=== PATIENT | female | born 1980 | race Caucasian/White ===

== ENCOUNTER → 2021-05-15 12:56 | Outpatient (BNVA) | payer OTHER, SELFPAY | PROVIDERS: PCP Nurse Practitioner; Visit Provider Psychiatry & Neurology Neurology | DX: G47.10 Hypersomnia, unspecified (principal); G47.419 Narcolepsy without cataplexy; R51.9 Headache, unspecified; G89.29 Other chronic pain | CPT/HCPCS: 99212 ==

== ENCOUNTER → 2021-06-21 11:51 | Outpatient (BNVA) | payer MEDICAID, SELFPAY | PROVIDERS: PCP Nurse Practitioner; Visit Provider Psychiatry & Neurology Neurology | DX: Z79.899 Other long term (current) drug therapy (principal) ==

== ENCOUNTER → 2021-07-08 14:24 | Outpatient (BNVA) | payer OTHER, SELFPAY | PROVIDERS: PCP Nurse Practitioner; Visit Provider Psychiatry & Neurology Neurology | DX: G47.10 Hypersomnia, unspecified (principal); F41.9 Anxiety disorder, unspecified; F32.A Depression, unspecified; R51.9 Headache, unspecified; G89.29 Other chronic pain | CPT/HCPCS: 99212 ==

== ENCOUNTER 2024-12-07 09:15 | Outpatient (REF) | payer OTHER, SELFPAY ==
--- NOTE | 2024-12-07 09:21 | EMG_ITS ---
Chief complaint: Bilateral hand numbness, right worse than left Reason for referral: Evaluate for Carpal Tunnel Syndrome, ulnar neuropathy, cervical radiculopathy Referred by: Konrad SANTOS Procedure done: Bilateral upper extremities NCS/EMG Precautions and/or limitations: None The limb temperature was monitored continuously and remained between 32-36 degrees C during the performance of the NCS. Nerve Conduction Studies Anti Sensory Summary Table ?Stim Site NR Onset (ms) Norm Onset (ms) Peak (ms) Norm Peak (ms) O-P Amp (?V) Norm O-P Amp Site1 Site2 Delta-0 (ms) Dist (cm) Valentin (m/s) Norm Valentin (m/s) Left Median Anti Sensory (2nd Digit) Wrist ? 3.0 4.8 <3.6 10.3 >10 Wrist 2nd Digit 3.0 14.0 47 Right Median Anti Sensory (2nd Digit) Wrist ? 4.6 6.0 <3.6 5.5 >10 Wrist 2nd Digit 4.6 14.0 30 Right Radial Anti Sensory (Thumb) Forearm ? 1.5 2.1 <3.1 26.1 Forearm Thumb 1.5 0.0 Left Ulnar Anti Sensory (5th Digit) Wrist ? 2.7 3.7 <3.7 20.1 >15.0 Wrist 5th Digit 2.7 14.0 52 Right Ulnar Anti Sensory (5th Digit) Wrist ? 2.7 3.5 <3.7 19.3 >15.0 Wrist 5th Digit 2.7 14.0 52 Motor Summary Table ?Stim Site NR Onset (ms) Norm Onset (ms) O-P Amp (mV) Norm O-P Amp iAmp (mV) Amp (1st) (%) Site1 Site2 Delta-0 (ms) Dist (cm) Valentin (m/s) Norm Valentin (m/s) Left Median Motor (Abd Poll Brev) Wrist ? 5.1 <3.9 11.0 >4.5 13.6 100.0 Elbow Wrist 3.5 17.5 50 >45 Elbow ? 8.6 11.1 13.4 100.9 Right Median Motor (Abd Poll Brev) Wrist ? 6.6 <3.9 11.8 >4.5 14.4 100.0 Elbow Wrist 3.8 19.0 50 >45 Elbow ? 10.4 11.1 13.6 94.1 Left Ulnar Motor (Abd Dig Minimi) Wrist ? 2.9 <3.0 7.2 >5 8.9 100.0 B Elbow Wrist 2.8 17.0 61 >45 B Elbow ? 5.7 6.5 8.3 90.3 A Elbow B Elbow 1.4 10.0 71 >45 A Elbow ? 7.1 6.6 8.3 91.7 Right Ulnar Motor (Abd Dig Minimi) Wrist ? 2.8 <3.0 7.8 >5 8.9 100.0 B Elbow Wrist 2.9 18.0 62 >45 B Elbow ? 5.7 7.5 9.2 96.2 A Elbow B Elbow 1.3 10.0 77 >45 A Elbow ? 7.0 7.4 9.1 94.9 EMG ?Side Muscle Nerve Root Ins Act Fibs Psw Amp Dur Poly Recrt Int Pat Comment Right 1stDorInt Ulnar C8-T1 Nml Nml Nml Nml Nml 0 Nml Complete Right FlexCarRad Median C6-7 Nml Nml Nml Nml Nml 0 Nml Complete Right FlexCarpiUln Ulnar C8,T1 Nml Nml Nml Nml Nml 0 Nml Complete Right Biceps Musculocut C5-6 Nml Nml Nml Nml Nml 0 Nml Complete Right Triceps Radial C6-7-8 Nml Nml Nml Nml Nml 0 Nml Complete Right Deltoid Axillary C5-6 Nml Nml Nml Nml Nml 0 Nml Complete Left 1stDorInt Ulnar C8-T1 Nml Nml Nml Nml Nml 0 Nml Complete Left FlexCarRad Median C6-7 Nml Nml Nml Nml Nml 0 Nml Complete Left FlexCarpiUln Ulnar C8,T1 Nml Nml Nml Nml Nml 0 Nml Complete Left Biceps Musculocut C5-6 Nml Nml Nml Nml Nml 0 Nml Complete Left Triceps Radial C6-7-8 Nml Nml Nml Nml Nml 0 Nml Complete Left Deltoid Axillary C5-6 Nml Nml Nml Nml Nml 0 Nml Complete FINDINGS: Bilateral median motor nerves showed prolonged distal latency, normal amplitude and normal conduction velocity. Bilateral median sensory nerves showed small amplitude and prolonged peak latency. All other nerves tested were within normal. Concentric needle EMG was performed in selected muscles of the bilateral upper extremities. Study revealed signs of electric abnormalities as shown in the table above. IMPRESSION: 1. This is an abnormal study. 2. There is electrodiagnostic evidence for bilateral moderate-severe median neuropathy at the wrist, consistent with carpal tunnel syndrome. 3. There is no electrodiagnostic evidence for ulnar neuropathy, brachial plexopathy, or cervical radiculopathy. Thank you for your kind referral. Yadi Summers MD, LIAM Board Certified, [place] [employer] and [employer] (ABPMR) Board Certified, [place] Board of Electrodiagnostic Medicine (ABEM) CODIN [phone] MTDD
--- OUTSIDE RECORDS SUMMARY | 2024-12-07 11:01 | XMS_ITS | Clinical Summary ---
Author Organization [facility] Address [address] [place] [address] Care Team Providers Care Clinical Allergist Name Role Phone Unavailable Primary Care Provider Unavailabl e Source Comments PLEASE NOTE, if this patient is a minor, it may be UNLAWFUL to discuss sensitive information that is contained in these records (such as FAMILY PLANNING, MENTAL HEALTH or SUBSTANCE ABUSE) with the minor patient's parent or other person without the patient's specific authorization.[facility] Immunizations Immunization Administration Dates Next Due PFIZER COVID VACCINE, PURPLE CAP, 12+ 11/04/2020 Social History Tobacco Use Types Packs/Day Years Used Date Smoking Tobacco: Never Assessed Social Connections Answer Date Recorded Social Connections and Isolation 0 11/04/2020 Financial Resource Strain Answer Date R ecorded Financial Resource Strain 0 2020 Stress Answer Date Recorded Stress 0 11/04/2020 Physical Activity Answer Date Recorded Physical Activity 0 11/04/2020 Food Insecurity Answer Date Recorded Food 0 11/04/2020 Transportation Needs Answer Date Record ed Transportation 0 11/04/2020 Housing Stability Answer Date Recorded Housing 0 11/04/2020 Safety and Environment Answer Date Aldair rded Safety 0 11/04/2020 Utilities Answer Date Recorded Utilities 0 11/04/2020 Employment Answer Date Recorded Employment 0 11/04/2020 Comments Unknown Sex and Gender Information Value Date Recorded Sex Assigned at Not on file Legal Sex Female 11:36 AM PDT Gender Identity Not on file Sexual Orientation Not on file Plan of Treatment Health Maintenance Due Date Last Done Comments Anxiety Screening 1978 HPV Screening 1978 Hepatitis C Screening 1978 Pap + HPV 1978 Tobacco Screening 1978 HIV Screening 1993 Relationship Safety Screening/Counseling 1993 Hypertension Screening (#1) 1996 Imm-DTaP/Tdap/Td (1 - Tdap) 1997 Imm-Hepatitis B (1 of 3 - 19+ 3-dose series) 8 Cervical Cancer Screening 1999 Pap Smear 1999 Breast Cancer Screening (Mammogram) 08/30/202208/30 CT Colonography 2023 Colonoscopy 2023 Colorectal Cancer Screening 2023 FIT/gFOBT 2023 Fecal DNA 2023 Flexible Sigmoidoscopy 2023 Diabetes Screening 08/21/2023 08/20/2020 Alcohol and Drug Screen 03/30/2024 Depression Annual Screen 03/30/2024 [id number] ( season) 2024 021 Imm-Influenza (#1) 2024 Lipid Screening 08/20/2025 08/20/2020 Cervical Ablation/Cold-Knife Conization Discontinued Cervical Cryotherapy Discontinued Colposcopy Discontinued Endometrial Biopsy Discontinued Excision/Leep Discontinued HPV Genotyping Discontinued Vaginal Pap Discontinued Vulvoscopy Discontinued Insurance [employer] PLAN Member Subscriber Plan / Payer (Ef fective 2019-Present) Name:Elizabeth Cannon Relation to Subscriber:Self Name:Elizabeth Cannon Payer ID:[id number] Group ID:[id number] Type:Medicaid Address: [facility] [address] [place] [address]
--- OUTSIDE RECORDS SUMMARY | 2024-12-07 11:01 | XMS_ITS | Clinical Summary ---
Author Organization [facility] [address] [place] [address] [place] [phone] Phone Care Team Providers Care Escrow Assistant Name Role Phone Tiny Tilley MD Primary Care Provider [phone] Allergies Active Allergy Reactions Criticality Noted Date Comments Bupropion Hcl Hives,Rash 10/11/2024 Medications fluticasone propionate (FLONASE) 50 mcg/actuation nasal spray 1 puff each nostril every daily 16 g 2 5 Active loratadine (CLARITIN) 10 mg tablet Take 1 tablet (10 mg total) by mouth 1 (one) time each day. 90 tablet 3 5 Active nystatin (MYCOSTATIN) 100,000 unit/gram powder Apply topically 2 (two) times a day. 15 g 2 5 09/16/19 26 Active polyethylene glycol (Golytely) 236-22.74-6.74 -5.86 gram solution Take 4L by mouth once for one dose. May substitue any PEG. Starting at 2PM the day before your procedure drink 1 8oz glasses at your own pace until you complete half of the gallon. Finish 2nd half of the gallon at 8PM. 4000 mL 5 Active Additional Information Patient not taking.Reported on 12/01/2024 bisacodyL (DULCOLAX) 5 mg EC tablet Take 2 tablets by mouth right before beginning bowel prep. See instructions provided by the office 2 tablet 5 Active Additional Information Patient not taking.Reported on 12/01/2024 desvenlafaxine succinate (PRISTIQ) 50 mg 24 hr tablet Take 1 tablet (50 mg total) by mouth 1 (one) time each day. 5 Active Concerta 54 mg 24 hr tablet Take 1 tablet (54 mg total) by mouth 1 (one) time each day in the morning. 5 Active sertraline (ZOLOFT) 50 mg tablet Take 0.5 tablets (25 mg total) by mouth 1 (one) time each day. 5 Active albuterol HFA (PROAIR HFA ; PROVENTIL HFA ; VENTOLIN HFA) 90 mcg/actuation inhaler Inhale 2 puffs by mouth every 6 (six) hours if needed for wheezing. Active multivit-min/ir on fum/folic ac (ONE-A-DAY WOMEN'S COMPLETE ORAL) Take by mouth. Active cholecalciferol (VITAMIN D-3) 25 mcg (1,000 unit) tablet Take 1 tablet (1,000 Units total) by mouth 1 (one) time each day. Active ascorbic acid (VITAMIN C) 500 mg tablet Take 1 tablet (500 mg total) by mouth 1 (one) time each day. 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 02/2021 Diagnostic polysomnogram did not reveal CHERELLE or nocturnal hypoxia. MSLT did not reveal narcolepsy or hypersomnia. It was noted that this patient was taking her SSRI at the time of the study and SSRIs can interfere with testing. History of sleeve gastrectomy 11/25/2018 Carpal tunnel syndrome, bilateral 07/19/2018 Right lateral epicondylitis 07/19/2018 Dysthymia 06/23/2016 Anxiety and depression 10/29/2015 Morbid obesity (CMS/HCC V24, CMS/HCC V28) 2015 Edema 09/22/2011 Overview (03/11/2024): Takes HCTZ pre edema Depression 03/13/2011 Wheezing 02/11/2011 Encounters Date Type Department Care Team Description 12/01/2024 8:30 AM EDT Consult Bariatric Surgery [address] [place] [address] Carla Heart MD S/P gastric sleeve procedure (Primary Dx); Weight gain; Gastroesophageal reflux disease, unspecified whether esophagitis present; CHERELLE (obstructive sleep apnea) 10/27/2024 11:00 AM EDT Consult Orthopedic Surgery [facility] [address] [facility] [address] [place] [address] Konrad Ingram PA Right cervical radiculopathy (Primary Dx); Ganglion cyst; Right carpal tunnel syndrome; Left carpal tunnel syndrome 10/15/2024 1:20 PM EDT - 10/15/2024 11:59 PM EDT Hospital Encounter Radiology Department - [address] [phone] Encounter for screening mammogram for breast cancer Discharge Disposition: Home or Self Care 09/15/2024 3:30 PM EDT Office Visit Adult Medicine [address] [phone] Tiny Tilley MD Chronic fatigue (Primary Dx); Ganglion cyst; Morbid obesity (CMS/HCC V24, CMS/HCC V28); Intertrigo from Last 3 Months Immunizations Name Administration Dates Next Due Hepatitis B (Gziooyh-D-Jtfej , Recombivax HB-Adult) 19yo and older 09/12/2011,07/01/2011,03/13/2011 Influenza Quadravalent, MDCK , 0.5ml, preservative free (Flucelvax) 6mo and older 01/27/2023,01/15/2021 Influenza Quadravalent, MDCK , 0.5ml, with preservative (Flucelvax) 6mo and older 12/15/2017 Influenza trivalent, 0.5mL, preservative free (Fluarix; FluLaval; Fluzone) ages 6mo and older (Afluria) 3 years and older 05/05/2016,12/13/2014 MMR, measles mumps and rubel la Live (Priorix; M-M-R II) 12mo and older 04/29/2018,03/29/2018,2014 Mumps 05/02/2014 Pfizer SARS-CoV-2 COVID-19, mRNA, LNP-S, preservative free 11/01/2020 Rubella 05/02/2014 Tb Skin Test 03/29/2018 Td Tetanus diptheria (Tdvax) 7yo and older 11/11 Tdap Tetanus diptheria acell ular pertussis (Boostrix; Adacel) 7yo and older 01/03/2024,03/13/2011 Varicella live (Varivax) 12mo and older 03/29/20 18 Surgical History Surgery Date Site/Laterality Comments BREAST BIOPSY 07/2013 PROCEDURE: BX BREAST; PERC NEEDLE CORE W/IMAG GUID; COMMENT: Benign fibroid left breast OTHER SURGICAL HISTORY 2018 PROCEDURE: HISTORY OTHER; COMMENT: Gastric Sleeve FINGER SURGERY 03/30/1981 - 03/29/1982 Left thumb slammed in door around 2-3 years old Medical History Medical History Date Comments Morbid obesity (CMS/HCC V24, CMS/HCC V28) 02/11/2011 DX:Morbid obesity (HCC) Depression 03/13/2011 DX:Depression Edema 09/22/2011 DX:Edema; COMMEN T: Takes HCTZ pre edema Wheezing 02/11/2011 DX:Wheezing CHERELLE (obstructive sleep apnea) 11/04/2021 DX :CHERELLE (obstructive sleep apnea); COMMENT: Mild Family History Medical History Relation Name Comments Diabetes Father Heart attack Father Anxiety disorder Maternal Grandfather Lymphoma Maternal Grandmother nonhodg kins lymphoma Stomach cancer Maternal Grandmother Depression Mother Hyperlipidemia Mother Hypertension Mother Stomach cancer Other 1 maternal grea t GM non hodgkins, digestive CA 60's Other: small bowel ca Other 2 greatg rand motherm aternal Diabetes Paternal Grandfather Diabetes Paternal Grandmother Breast cancer Neg Hx Colon cancer Neg Hx Ovarian cancer Neg Hx Relation Name Status Comments Brother Alive x1, Healthy Father Maternal Grandfather Maternal Grandmother Mother Alive Other 1 Other 2 Paternal Grandfather Paternal Grandmother Sister Alive x1, Graves dise ase, JACOB cervix Social History Tobacco Use Types Packs/Day Years Used Date Smoking Tobacco: Former Cigarettes Q uit: 03/30/2014 Smokeless Tobacco: Never Tobacco Cessation:Counseling Given: Not Answered Alcohol Use Standard Drinks/Week Comments Yes 0 (1 standard drink = 0.6 oz pur e alcohol) rare Housing Instability Answer Date Recorde d Are you worried that in the next 2 months you may not have stable housing? No 07/26/2024 Food Access & Nutrition Answer Date Rec orded Do you have access to a vari ety of food including fruits and vegetables? No 07/26/2024 Access to Healthcare Answer Date Record ed Within the last 3 months, emilia alonso many times did you visit the emergency department for your medical care? 0 07/26/2024 Health Literacy Answer Date Recorded How often do you need to hav e someone help you when you read instructions, pamphlets, or other written material from your doctor or pharmacy? Never 07/26/2024 Caregiver: How often do you need to have someone help you when you read instructions, pamphlets, or other written material from your doctor or pharmacy? Not on file 07/26/2024 Financial Risk Answer Date Recorded How hard is it for you to pa y for the very basics like food, housing, medical care, and air conditioning / heating? Somewhat hard 07/26/2024 Transportation Answer Date Recorded Has the lack of transportati on kept you from meetings, work, or from getting things needed for daily living? No Has the lack of transportati on kept you from medical appointments or from getting medications? No 07/26/2024 Social Isolation Answer Date Recorded How often do you feel lonely or isolated from those around you? Sometimes 07/26/2024 Food Risk Answer Date Recorded Within the past 12 months we worried whether our food would run out before we got money to buy more. Sometimes true 025 Within the past 12 months th e food we bought just didn't last and we didn't have money to get more. Sometimes true 07/26/2024 Dependent Care Answer Date Recorded Do you need help finding or paying for care for your loved ones. For example, child caregiver or elderly care for an older adult? No 07/26/2024 Education Answer Date Recorded Do you think completing more education or training, like finishing a GED, going to college, or learning a trade, would be helpful for you? Yes 07/26/2024 Employment and Income Answer Date Recor ded During the last four weeks, have you been actively looking for work? No 07/26/2024 Living Situation Answer Date Recorded What is your living situation? 0 07/26/2024 Comments No Sex and Gender Information Value Date Recorded Sex Assigned at Not on file Legal Sex Female 11:34 PM EST Gender Identity Not on file Sexual Orientation Not on file Obstetrics History Para Term AB IAB SAB Ectopic Multiple Livin g Live Births 3 3 3 3 Date Outcome GA Total Labor Labor/2nd/3rd Weight Sex Type Anes PTL Anabella A1 A5 Name Clin Term Term Term Last Filed Vital Signs Vital Sign Reading Time Taken Comments Blood Pressure 126/86 12/01/2024 8:19 AM EDT Pulse 88 12/01/2024 8:19 AM EDT Temperature 36.6 C (97.8 F) 09/15/2024 3:28 PM EDT Respiratory Rate 14 09/15/2024 3:28 PM EDT Oxygen Saturation - - Inhaled Oxygen Concentration - - Weight 104 kg (230 lb) 12/01/2024 8:19 AM EDT Height 162.6 cm (5' 4 ) 12/01/2024 8:19 AM EDT Body Mass Index 39.48 12/01/2024 8:19 AM EDT Plan of Treatment Upcoming Encounters Date Type Department Care Team (Late st Contact Info) Description 01/25/2025 4:30 PM EDT Office Visit Adult Medicine [address] [phone] Tiny Tilley MD [address] [place] [address] 01/27/2025 11:00 AM EDT Office Visit Orthopedic Surgery - [facility] [address] [facility] [address] [place] [address] Konrad Ingram PA 175 [place], [place] [phone] 03/02/2025 8:00 AM EST Nutrition Bariatric Surgery - [place] [address] [address] Maribel Corrigan, ROSY [address] [address] 06/07/2025 9:30 AM EDT Office Visit Bariatric Surgery - [place] [address] [phone] Mia Alarcon PA [address] [place] [address] Health Maintenance Due Date Last Done Comments Pneumococcal Vaccine: Pediatrics (0 to 5 Years) and At-Risk Patients (6 to 49 Years) (1 of 2 - PCV) 1997 Colorectal Cancer Screening: Colonoscopy 03/08/2022 HIV Screening 03/08/2022 Hepatitis C Screening 03/08/2022 Influenza Vaccine (#1) 2024 , 01/15/2021, 12/15/2017, Additional history exists Social Influencers of Health Screening 07/26/2025 07/26/2024 Breast Cancer Screening 10/15/2026 10/16/19 25, 10/03/2023, 10/03/2023, Additional history exists Cervical Cancer Screening: HPV 04/24/2027 04/24/2022 Cholesterol Screening (Lipid Panel) 07/26/2029 07/26/2024, 01/27/2023 DTaP,Tdap,and Td Vaccines (4 - Td or Tdap) 01/02/2034 01/03/2024, 11/11/2021, 03/13/2011 Hepatitis B Vaccines Completed 09/12/2011, 07/01/2011, 03/13/2011 Varicella Vaccines Aged Out 03/29/2018 No longer eligible based on patient's age to complete this topic MMR Vaccines Aged Out 04/29/2018, 03/01, 2014 No longer eligible based on patient's age to complete this topic COVID-19 Vaccine Discontinued 11/01/2020 Depression Screening Completed 09/08/2024 HIB Vaccines Aged Out No longer eligi ble based on patient's age to complete this topic HPV Vaccines Aged Out No longer eligi ble based on patient's age to complete this topic Hepatitis A Vaccines Aged Out No long er eligible based on patient's age to complete this topic IPV Vaccines Aged Out No longer eligi ble based on patient's age to complete this topic Meningococcal ACWY Vaccine Aged Out N o longer eligible based on patient's age to complete this topic Meningococcal B Vaccine Aged Out No l onger eligible based on patient's age to complete this topic RSV Immunization Patients Under 20 months Aged Out No longer eligible based on patient's age to complete this topic Procedures Procedure Name Priority Date/Time Associated Diagnosis Comments ZINC Routine 12/01/2024 9:07 AM EDT S/P gastric sleeve procedure VITAMIN B6 Routine 12/01/2024 9:07 AM EDT S/P gastric sleeve procedure SELENIUM SERUM Routine 12/01/2024 9:07 AM EDT S/P gastric sleeve procedure XR WRIST 3+ VIEWS RIGHT Routine 10/28/19 25 11:19 AM EDT Ganglion cyst MG MAMMO DIGITAL SCREENING W RAYMUNDO BILAT Routine 10/15/2024 1:29 PM EDT Encounter for screening mammogram for breast cancer TRIIODOTHYRONINE FREE Routine 09/15/2024 4:19 PM EDT Chronic fatigue FREE THYROXINE WITH REFLEX TO FREE TRIIODOTHYRONINE Routine 09/15/2024 4:19 PM EDT Chronic fatigue CBC WITH AUTO DIFFERENTIAL Routine 09/15/2024 4:19 PM EDT Chronic fatigue VITAMIN B12 AND FOLATE Routine 4:19 PM EDT Chronic fatigue IRON AND TIBC Routine 09/15/2024 4:19 PM EDT Chronic fatigue FERRITIN Routine 09/15/2024 4:19 PM EDT Chronic fatigue VITAMIN D 25 HYDROXY Routine 09/15/2024 4:19 PM EDT Chronic fatigue THYROID STIMULATING HORMONE WITH REFLEX TO FREE T4 AND FREE T3 Routine 09/15/2024 4:19 PM EDT Chronic fatigue CBC AND DIFFERENTIAL Routine 09/15/2024 4:19 PM EDT Chronic fatigue LIPID PANEL WITH REFLEX TO DIRECT LDL Routine 07/26/2024 2:53 PM EDT Routine physical examination HM HPV Routine 04/24/2022 from Last 3 Months or Most Recently Relevant to Health Maintenance Results * Zinc (12/01/2024 9:07 AM EDT) [facility] Signature Zinc 81 60 - 130 ug/dL 12/05/2024 12:33 PM EDT [facility] Comment: Elevated results may be due to sample collected in a non-certified trace element-free tube. This test was developed and the performance characteristics determined by [facility]. It has not been cleared or approved by the FDA. The laboratory is regulated under CLIA as qualified to perform high-complexity testing. This test is used for patient testing purposes. It should not be regarded as investigational or for research. Test performed at [facility], [address], [place] [address] Suzanne Vee MD, PhD - Material Coordinator Blood Venous blood specimen / Unknown Venipuncture / Unknown 12/01/2024 9:07 AM EDT 12/01/2024 9:07 AM EDT Carla Heart MD LAB BLOOD ORDERABLES Fi nal Result Performing Organization Address City/[facility]/ZIP Co de Phone Number [facility] [address] [place] [address] * Selenium serum (12/01/2024 9:07 AM EDT) Selenium 138 63 - 160 mcg/L 12/04/2024 11:03 PM EDT [facility] Comment: This test was developed and its analytical performance characteristics have been determined by [facility] [place]. It has not been cleared or approved by the U.S. Food and Drug Administration. This assay has been validated pursuant to the CLIA regulations and is used for clinical purposes. Test Performed by [facility], [facility], [address] [place] [address] Armin Domínguez M.D., Ph.D., Director of Laboratories , CLIA [id number] Blood Venous blood specimen / Unknown Venipuncture / Unknown 12/01/2024 9:07 AM EDT 12/01/2024 9:07 AM EDT Carla Heart MD LAB BLOOD ORDERABLES Fi nal Result Performing Organization Address [facility] Co de Phone Number [facility] [address] [place] [address] * Vitamin B6 (12/01/2024 9:07 AM EDT) Vitamin B6 (Pyridoxine) Level 18 5 - 50 ug/L 12/06/2024 11:59 AM EDT [facility] Comment: This test was developed and the performance characteristics determined by [facility]. It has not been cleared or approved by the FDA. The laboratory is regulated under CLIA as qualified to perform high-complexity testing. This test is used for patient testing purposes. It should not be regarded as investigational or for research. Test performed at [facility], [address] , [place], [place] [id number] Suzanne Vee MD, PhD - Material Coordinator Blood Venous blood specimen / Unknown Venipuncture / Unknown 12/01/2024 9:07 AM EDT 12/01/2024 9:07 AM EDT Carla Heart MD LAB BLOOD ORDERABLES Fi nal Result [facility] [address] [place] [address] * XR Wrist 3+ Views Right (10/27/2024 11:19 AM EDT) Anatomical Region Laterality Modality Upper Extremities, Wrist Right Compute d Radiography Narrative 10/27/2024 3:13 PM EDT Three-view x-rays of the right wrist done today show no acute fractures or dislocations, no osseous lesions or abnormalites, soft tissue shadows appear normal, no significant degenerative changes Impression: Normal x-ray of the right wrist without osseous abnormalities Konrad SANTOS IMG XR PROCEDURES Final Result * MG Mammo Digital Screening w Raymundo bilat (10/15/2024 1:29 PM EDT) Anatomical Region Laterality Modality Breast Bilateral Mammography 10/18/2024 10:4 9 AM EDT Impressions 10/18/2024 10:55 AM EDT Benign. BI-RADS CATEGORY: 1 - NEGATIVE RECOMMENDATION: Screening bilateral mammogram is recommended in 1 year. Mammo Location: [facility], [address] [place] [address], [id number], . -------- FINAL REPORT -------- Dictated By: Radha Diaz Dictated Date: 10/18/2024 10:49 ET Assigned Physician: Radha Diaz Reviewed and Electronically Signed By: Radha Diaz Signed Date: 10/18/2024 10:55 ET Workstation ID: [id number] Transcribed By: Self Edit Transcribed Date: 10/18/2024 10:49 ET Narrative 10/18/2024 10:55 AM EDT CLINICAL: 44 years old, Female, routine annual exam. COMPARISON: Mammograms dating back to 08/30/2020 with most recent of 10/03/2023. TECHNIQUE: Bilateral MLO and CC views were obtained digitally with 3-D mammogram (digital breast tomosynthesis). Computer-aided detection was utilized in evaluation of this exam (CAD). FINDINGS: There is no evidence of suspicious mass or architectural distortion. No worrisome calcifications are evident. There is a biopsy clip in the upper medial left breast. There has been no significant change from prior exam(s). BREAST DENSITY: C - The breasts are heterogeneously dense which may obscure small masses. Procedure Note Radha Diaz MD - 10/18/2024 CLINICAL: 44 years old, Female, routine annual exam. COMPARISON: Mammograms dating back to 08/30/2020 with most recent of10/03/2023. TECHNIQUE: Bilateral MLO and CC views were obtained digitally with 3-Dmammogram (digital breast tomosynthesis). Computer-aided detection wasutilized in evaluation of this exam (CAD). FINDINGS: There is no evidence of suspicious mass or architectural distortion. Noworrisome calcifications are evident. There is a biopsy clip in the uppermedial left breast. There has been no significant change from priorexam(s). BREAST DENSITY: C - The breasts are heterogeneously dense which mayobscure small masses. IMPRESSION: Benign. BI-RADS CATEGORY: 1 - NEGATIVE RECOMMENDATION: Screening bilateral mammogram is recommended in 1 year. Mammo Location: [facility], [address] [place] [address], [phone], . -------- FINAL REPORT -------- Dictated By: Radha Diaz Dictated Date: 10/18/2024 10:49 ET Assigned Physician: Radha Diaz Reviewed and Electronically Signed By: Radha Diaz Signed Date: 10/18/2024 10:55 ET Workstation ID: [id number] Transcribed By: Self Edit Transcribed Date: 10/18/2024 10:49 ET us Tiny Serranoik MD IMG BI PROCEDURES Final Result * (ABNORMAL) Thyroid stimulating hormone with reflex to free t4 and free t3 (09/15/2024 4:19 PM EDT) Pathologist [facility] TSH 5.21(H) 0.40 - 4.00 mcIU/mL LAB CHEMISTRY METHOD 09/15/2024 8:34 PM EDT [facility] Blood Venous blood specimen / Unknown Venipuncture / Unknown 09/15/2024 4:19 PM EDT 09/15/2024 4:19 PM EDT us Tiny Tilley MD LAB BLOOD ORDERABLES Final Resul t Performing Organization Address [facility] Co de Phone Number [facility] [address] [place] [address], [place] [phone] * Free thyroxine with reflex to free triiodothyronine (09/15/2024 4:19 PM EDT) [facility] Free T4 0.92 0.70 - 1.80 ng/dL LAB CHEMISTRY METHOD 09/15/2024 9:20 PM EDT [facility] Blood Venous blood specimen / Unknown Venipuncture / Unknown 09/15/2024 4:19 PM EDT 09/15/2024 4:19 PM EDT us Tiny Tilley MD LAB BLOOD ORDERABLES Final Resul t Performing Organization Address City/[facility]/ZIP Co de Phone Number [facility] [address] [place] [address], [place] [phone] * (ABNORMAL) Vitamin B12 and folate (09/15/2024 4:19 PM EDT) Pathologist [facility] Vitamin B-12 562 250 - 900 pcg/mL LAB CHEMISTRY METHOD 09/15/2024 8:00 PM EDT [facility] Folate >20.0(H) 2.8 - 17.0 ng/ml LAB CHEMISTRY METHOD 09/15/2024 8:00 PM EDT [facility] Blood Venous blood specimen / Unknown Venipuncture / Unknown 09/15/2024 4:19 PM EDT 09/15/2024 4:19 PM EDT us Tiny Tilley MD LAB BLOOD ORDERABLES Final Resul t [facility] [address] [place] [address], [place] [phone] * CBC auto differential (09/15/2024 4:19 PM EDT) WBC 7.9 4.8 - 10.8 K/mcL LAB HEMETOLOGY METHOD 09/15/2024 6:38 PM EDT [facility] RBC 4.50 3.80 - 4.80 M/mcL LAB HEMETOLOGY METHOD 09/15/2024 6:38 PM EDT [facility] Hemoglobin 13.6 11.5 - 16.0 g/dL LAB HEMETOLOGY METHOD 09/15/2024 6:38 PM EDT [facility] Hematocrit 41.4 35.0 - 47.0 % LAB HEMETOLOGY METHOD 09/15/2024 6:38 PM EDT [facility] MCV 92.8 79.0 - 98.0 FL LAB HEMETOLOGY METHOD 09/15/2024 6:38 PM EDT [facility] MCH 30.5 27.0 - 32.0 pcg LAB HEMETOLOGY METHOD 09/15/2024 6:38 PM EDT [facility] MCHC 32.9 32.0 - 37.0 g/dL LAB HEMETOLOGY METHOD 09/15/2024 6:38 PM EDT [facility] RDW 13.2 11.0 - 15.0 % LAB HEMETOLOGY METHOD 09/15/2024 6:38 PM EDT [facility] Platelets 321 130 - 400 K/mcL LAB HEMETOLOGY METHOD 09/15/2024 6:38 PM EDT [facility] MPV 10.8 7.0 - 11.0 FL LAB HEMETOLOGY METHOD 09/15/2024 6:38 PM [facility] NRBC 0.0 <1.0 % LAB HEMETOLOGY METHOD 09/15/2024 6:38 PM EDT [facility] NRBC Absolute 0.00 <0.10 K/mcL LAB HEMETOLOGY METHOD 09/15/2024 6:38 PM EDT [facility] Neutrophils Relative 64.6 % LAB HEMETOLOGY METHOD 09/15/2024 6:38 PM [facility] Lymphocytes Relative 26.5 % LAB HEMETOLOGY METHOD 09/15/2024 6:38 PM EDT [facility] Monocytes Relative 6.1 % LAB HEMETOLOGY METHOD 09/15/2024 6:38 PM [facility] Eosinophils Relative 1.9 % LAB HEMETOLOGY METHOD 09/15/2024 6:38 PM [facility] Basophils Relative 0.5 % LAB HEMETOLOGY METHOD 09/15/2024 6:38 PM [facility] Immature Granulocytes Relative 0.4 % LAB HEMETOLOGY METHOD 09/15/2024 6:38 PM EDT [facility] Neutrophils Absolute 5.13 1.50 - 7.00 K/mcL LAB HEMETOLOGY METHOD 09/15/2024 6:38 PM EDT [facility] Lymphocytes Absolute 2.10 1.00 - 5.00 K/mcL LAB HEMETOLOGY METHOD 09/15/2024 6:38 PM T [facility] Monocytes Absolute 0.48 0.20 - 1.00 K/mcL LAB HEMETOLOGY METHOD 09/15/2024 6:38 PM EDT [facility] Eosinophils Absolute 0.15 0.00 - 0.50 K/mcL LAB HEMETOLOGY METHOD 09/15/2024 6:38 PM EDT [facility] Basophils Absolute 0.04 0.00 - 0.20 K/[facility] LAB HEMETOLOGY METHOD 09/15/2024 6:38 PM EDT [facility] Immature Granulocytes Absolute 0.03 0.00 - 0.03 K/[facility] LAB HEMETOLOGY METHOD 09/15/2024 6:38 PM EDT [facility] Blood Venous blood specimen / Unknown Venipuncture / Unknown 09/15/2024 4:19 PM EDT 09/15/2024 4:19 PM EDT us Tiny Tilley MD LAB BLOOD ORDERABLES Final Resul t Performing Organization Address City/[facility]/ZIP Co de Phone Number [facility] [address] [place] [address], [place] [phone] * Iron and TIBC (09/15/2024 4:19 PM EDT) Iron 54 40 - 150 mcg/dL LAB CHEMISTRY METHOD 09/15/2024 6:51 PM EDT [facility] TIBC 353 250 - 450 mcg/dL LAB CHEMISTRY METHOD 09/15/2024 6:51 PM EDT [facility] Iron Saturation 15 15 - 50 % LAB CHEMISTRY METHOD 09/15/2024 6:51 PM EDT [facility] Blood Venous blood specimen / Unknown Venipuncture / Unknown 09/15/2024 4:19 PM EDT 09/15/2024 4:19 PM EDT us Tiny Tilley MD LAB BLOOD ORDERABLES Final Resul t [facility] [address] [place] [address], [place] [phone] * Vitamin D 25 hydroxy (09/15/2024 4:19 PM EDT) Pathologist [facility] Vit D, 25-Hydroxy 72.4 30.0 - 80.0 ng/mL LAB CHEMISTRY METHOD 09/15/2024 7:23 PM EDT [facility] Blood Venous blood specimen / Unknown Venipuncture / Unknown 09/15/2024 4:19 PM EDT 09/15/2024 4:19 PM EDT us Tiny Tilley MD LAB BLOOD ORDERABLES Final Resul t [facility] [address] [place] [address], [place] [phone] * Triiodothyronine free (09/15/2024 4:19 PM EDT) Pathologist [facility] T3, Free 281 230 - 420 pcg/dL LAB CHEMISTRY METHOD 09/15/2024 9:58 PM EDT [facility] Blood Venous blood specimen / Unknown Venipuncture / Unknown 09/15/2024 4:19 PM EDT 09/15/2024 4:19 PM EDT us Tiny Tilley MD LAB BLOOD ORDERABLES Final Resul t [facility] [address] [place] [address], [place] [phone] * Ferritin (09/15/2024 4:19 PM EDT) Pathologist [facility] Ferritin 62 8 - 252 ng/mL LAB CHEMISTRY METHOD 09/15/2024 7:15 PM EDT [facility] Blood Venous blood specimen / Unknown Venipuncture / Unknown 09/15/2024 4:19 PM EDT 09/15/2024 4:19 PM EDT us Tiny Tilley MD LAB BLOOD ORDERABLES Final Resul t [facility] [address] [place] [address], [place] [phone] * (ABNORMAL) Lipid panel with reflex to direct LDL (07/26/2024 2:53 PM EDT) Cholesterol 207(H) 0 - 200 mg/dL LAB CHEMISTRY METHOD 07/26/2024 6:51 PM EDT [facility] Triglycerides 69 0 - 150 mg/dL LAB CHEMISTRY METHOD 07/26/2024 6:51 PM EDT [facility] HDL 53 >=40 mg/dL LAB CHEMISTRY METHOD 07/26/2024 6:51 PM EDT [facility] LDL Calculated 140(H) 0 - 100 mg/dL LAB CHEMISTRY METHOD 07/26/2024 6:51 PM EDT [facility] VLDL Cholesterol Rajesh 13.8 mg/dL LAB CHEMISTRY METHOD 07/26/2024 6:51 PM EDT [facility] Non HDL Chol. (LDL+VLDL) 154(H) <145 mg/dL LAB CHEMISTRY METHOD 07/26/2024 6:51 PM EDT [facility] Chol/HDL Ratio 3.9 0.0 - 4.4 LAB CHEMISTRY METHOD 07/26/2024 6:51 PM EDT [facility] Blood Venous blood specimen / Unknown Venipuncture / Unknown 07/26/2024 2:53 PM EDT 07/26/2024 2:53 PM EDT Bethany SANTOS LAB BLOOD ORDERABLES Final Res ult [facility] [address] [place] [address], [place] [phone] * Hm Cervical Cancer Screening: HPV (04/24/2022) Pathologist [facility] Cervical Cancer Screening: HPV Negative, Abstracted us Historical Provider HEALTH MAINTENANCE Final Result from Last 3 Months or Most Recently Relevant to Health Maintenance Insurance [facility] Care Teams Escrow Assistant Relationship Specialty Start Date End Date Tiny Tilley MD [address] [place] [phone] PCP - General 07/08/22
--- OUTSIDE RECORDS SUMMARY | 2024-12-07 11:01 | XMS_ITS ---
Author Name [facility] Organization Unknown Care Team Organization Name Specialty Phone Email Start Date End Da te [facility] Tiny Tilley Primary Care 12/04/2022 024 [facility] Dariela Christian Primary Care 02/04/202210/28
== END 2024-12-07 09:16 | disposition home or self-care (01) ==
LOC: HO.NEURO 09:15
PROVIDERS: PCP Internal Medicine
DX: G56.03 Carpal tunnel syndrome, bilateral upper limbs (principal)
CPT/HCPCS: 95886; 95911

== ENCOUNTER → 2024-12-07 09:21 | Outpatient (BNV) | payer OTHER, SELFPAY | PROVIDERS: PCP Internal Medicine; Visit Provider Physical Medicine & Rehabilitation | DX: G56.03 Carpal tunnel syndrome, bilateral upper limbs (principal) | CPT/HCPCS: 95886; 95911 ==